=== PATIENT | female | born 1950 | race Caucasian/White ===

== ENCOUNTER 2020-04-06 11:00 | Emergency (ER) | payer BC ==
[~2020-04-06] VITALS: Ht 149.9 cm; Wt 55.8 kg
[2020-04-06] MEDS ORDERED: TRIA37.5 PO (11:56)
[2020-04-06] MEDS ORDERED: PROTPAK PO (11:56)
[2020-04-06] MEDS ORDERED: PRAV40TA2 PO (11:56)
[2020-04-06] MEDS ORDERED: AMLO5TAB6 PO (11:56)
[2020-04-06] MEDS ORDERED: ONDANSETRON 4MG/2ML VIAL IV ONE (12:15)
[2020-04-06] MEDS ORDERED: KETOROLAC 30 MG/ML 1ML VIAL IV ONE (12:15)
[2020-04-06] MEDS ORDERED: NS 1,000 ML IV ONE (12:15)
[2020-04-06 13:05] LABS: BASO # 0.1 10^3/uL (0.0-0.2); EOS % 0.3 % (0.0-3.0); HEMOGLOBIN 13.8 g/dl (12.0-15.5); LYMPH # 1.9 10^3/uL (1.5-5.0); LYMPH % 20.5 % (24.0-44.0); MEAN CORPUSCULAR HEMOGLOBIN 30.8 pg (27.0-33.0); MEAN CORPUSCULAR HGB CONC 32.9 g/dl (32.0-36.5); MEAN CORPUSCULAR VOLUME 93.8 fl (80.0-96.0); MONO # 0.5 10^3/uL (0.0-0.8); MONO % 5.9 % (0.0-5.0); NEUTROPHILS # 6.5 10^3/uL (1.5-8.5); NEUTROPHILS % 72.1 % (36.0-66.0); PLATELET COUNT, AUTOMATED 384 10^3/uL (150-450); RED BLOOD COUNT 4.48 10^6/uL (4.00-5.40)
[2020-04-06 13:09] LABS: BLOOD UREA NITROGEN 11 MG/DL (7-18); CARBON DIOXIDE LEVEL 25 MEQ/L (21-32); CHLORIDE LEVEL 101 MEQ/L (98-107); CREATININE FOR GFR 0.89 MG/DL (0.55-1.30); GLOMERULAR FILTRATION RATE > 60.0 (>39); GLUCOSE, FASTING 101 MG/DL (70-100); SODIUM LEVEL 138 MEQ/L (136-145)
[2020-04-06 13:13] LABS: ALBUMIN 4.7 GM/DL (3.2-5.2); ALT/SGPT 29 U/L (12-78); BILIRUBIN,DIRECT 0.1 MG/DL (0.0-0.2); BILIRUBIN,TOTAL 0.5 MG/DL (0.2-1.0); CK-MB VALUE MASS < 1.0 NG/ML (<3.6); CPK CREATINE PHOSPHOKINASE 52 U/L (26-192); MAGNESIUM LEVEL 2.1 MG/DL (1.8-2.4); MB/CK RELATIVE INDEX 1.92 (< OR =4); TOTAL PROTEIN 8.6 GM/DL (6.4-8.2); TROPONIN I < 0.02 NG/ML (< 0.10)
[2020-04-06 13:16] LABS: INR 0.94; PARTIAL THROMBOPLASTIN TIME 30.3 SECONDS (25.0-38.4); PROTHROMBIN TIME 12.3 SECONDS (11.8-14.0)
[2020-04-06] MEDS ORDERED: KCL 10MEQ/100ML SWI (KRUN) 10 MEQ in IV 1 EA IV ONE (13:30)
[2020-04-06] MEDS ORDERED: METOCLOPRAMIDE INJ 10MG/2ML VIAL (J2765 PER 1) IV ONE (14:45)
[2020-04-06] MEDS ORDERED: ONDA4TAB6 PO (14:48)
[2020-04-06] MEDS ORDERED: MICO2CR TOP (15:02)
[2020-04-06 15:13] VITALS: BP 150/73
--- NOTE | 2020-04-06 16:35 | ECGEPIP ---
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
--- NOTE | 2020-04-06 23:47 | REP ---
CHEST PORTABLE: REASON: Stroke-like symptoms. FINDINGS: The technique utilized in obtaining the radiograph has magnified the cardiac silhouette and accentuated the interstitial markings. The superior mediastinal structures are midline. The cardiac silhouette is unremarkable in size, shape, and position. The diaphragmatic surfaces of the lungs are regular, and the costophrenic angles are clear. The pulmonary [place] are clear. The imaged osseous structures are intact. IMPRESSION: There is no acute cardiopulmonary disease. Electronically Signed by Frank Ogden DO 04/07/2020 11:32 A
--- NOTE | 2020-04-07 00:06 | REP ---
REASON: Neck pain, headache, and vomiting. I have been given no history of trauma whatsoever. Due to the emergent nature of the exam, it is being interpreted prior to notes placed in [employer] by the technologist performing the CT. Information for reason is through the standard power jacket. Vertebral body height and alignment is within normal limits. There is degenerative disc space narrowing at every level. Anterior and posterior osteophytic ridging is seen, particularly C5-6 and C6-7. There is a small amount of air density seen in the C4-5 disc space secondary to vacuum phenomena from degenerative disc disease. The facet joints are well aligned bilaterally. Degenerative facet and uncovertebral joint changes are seen bilaterally at every level. There is no evidence of an acute fracture. IMPRESSION: Chronic changes, as described above. No evidence of an acute fracture. Electronically Signed by Frank Ogden DO 04/07/2020 11:33 A
--- NOTE | 2020-04-07 00:08 | REP ---
CT BRAIN WITHOUT CONTRAST: REASON: Nausea, vomiting, and headache. There are no priors for comparison. No history of trauma. TECHNIQUE: 4.5 mm contiguous transaxial sections were obtained from the skull base to the cerebral convexities with thin cuts through the posterior fossa without the administration of intravenous contrast. FINDINGS: The ventricles and sulci are consistent with the patient's age. There are no extra-axial fluid collections. There is no mass effect. The deep cerebral white matter is consistent with the patient's age. The orbital and petrous structures, cerebellopontine angles, and posterior fossa are unremarkable. The sella turcica, cavernous, and paracavernous structures are essentially unremarkable. The visualized portions of the paranasal sinuses and mastoid air cells are clear. Images of the skull base show no gross abnormality. IMPRESSION: Essentially unremarkable CT examination of the brain. Electronically Signed by Frank Ogden DO 04/07/2020 11:33 A
== END 2020-04-06 15:14 | disposition home or self-care (01) ==
LOC: M ED 11:00
DX: R51 Headache (principal); K21.9 Gastro-esophageal reflux disease without esophagitis; Z79.899 Other long term (current) drug therapy; Z88.5 Allergy status to narcotic agent
CPT/HCPCS: 70450; 71045; 72125; 80047; 80048; 80076; 81001; 82550; 82553; 83735; 84484; 85025; 85610; 85730; 87086; 87486; 87581; 87633; 87798; 93005; 96361; 96365; 96375; 99284; J1885; J2405; J2765